=== PATIENT | female | born 1995 | race Caucasian/White ===

== ENCOUNTER 2021-12-30 08:25 | Outpatient (CLI) | payer OTHER ==
[~2021-12-30 08:25] MED LIST: FOLIC ACID1 MG; IRON325 MG; PRENATAL CAPLE1 EAC1; PROAIR HFA8.5 GM
== END 2021-12-30 09:31 | disposition home or self-care (01) ==
LOC: NST 08:25
PROVIDERS: ATTEND Specialist
DX: Z34.83 Encounter for supervision of other normal pregnancy, third trimester (principal)

== ENCOUNTER 2022-01-01 05:39 | Inpatient (IN) | payer OTHER ==
[~2022-01-01] VITALS: Ht 165.1 cm; Wt 79.4 kg
== END 2022-01-03 14:07 | disposition home or self-care (01) | DRG 807 ==
LOC: LDR 05:39 → SURG-SUITE 05:39
PROVIDERS: ADMIT Specialist; ATTEND Specialist
PROC: 10E0XZZ Delivery of Products of Conception, External Approach (ICD-10-PCS; principal; 2022-01-01)
PROC: 0W8NXZZ Division of Female Perineum, External Approach (ICD-10-PCS; 2022-01-01)
PROC: 4A1HXCZ Monitoring of Products of Conception, Cardiac Rate, External Approach (ICD-10-PCS; 2022-01-01)
DX: O60.14X0 Preterm labor third trimester with preterm delivery third trimester, not applicable or unspecified (principal); Z37.0 Single live birth; Z3A.36 36 weeks gestation of pregnancy; Z20.822 Contact with and (suspected) exposure to COVID-19

== ENCOUNTER 2022-09-19 20:33 | Emergency (ER) | payer OTHER ==
[~2022-09-19] VITALS: Ht 167.6 cm; Wt 77.1 kg
[2022-09-20] MEDS ORDERED: OSEL75CA PO (03:30)
== END 2022-09-20 04:23 ==
LOC: ER 20:33
DX: O99.512 Diseases of the respiratory system complicating pregnancy, second trimester (principal); Z3A.24 24 weeks gestation of pregnancy; J11.1 Influenza due to unidentified influenza virus with other respiratory manifestations; Z91.013 Allergy to seafood; Z20.822 Contact with and (suspected) exposure to COVID-19

== ENCOUNTER 2022-10-12 13:56 | Outpatient (CLI) | payer OTHER ==
[~2022-10-12 13:56] MED LIST changes: +OSEL75CA PO
== END 2022-10-13 06:30 | disposition home or self-care (01) ==
LOC: OBS/DEL 13:56
PROVIDERS: ATTEND Specialist
DX: O26.892 Other specified pregnancy related conditions, second trimester (principal); Z3A.27 27 weeks gestation of pregnancy; K52.9 Noninfective gastroenteritis and colitis, unspecified; Z91.013 Allergy to seafood

== ENCOUNTER 2022-12-31 04:25 | Inpatient (IN) | payer OTHER ==
[~2022-12-31] VITALS: Ht 167.6 cm; Wt 82.1 kg
[2022-12-31] MEDS ORDERED: SINGULAIR4 M1 PO (06:11)
== END 2023-01-02 15:12 | disposition home or self-care (01) | DRG 807 ==
LOC: LDR 04:25 → OB/GYN 17:00
PROVIDERS: ADMIT Specialist; ATTEND Specialist
PROC: 10E0XZZ Delivery of Products of Conception, External Approach (ICD-10-PCS; principal; 2022-12-31)
PROC: 0UQG7ZZ Repair Vagina, Via Natural or Artificial Opening (ICD-10-PCS; 2022-12-31)
PROC: 4A1HXCZ Monitoring of Products of Conception, Cardiac Rate, External Approach (ICD-10-PCS; 2022-12-31)
DX: O71.4 Obstetric high vaginal laceration alone (principal); Z37.0 Single live birth; Z3A.39 39 weeks gestation of pregnancy; Z20.822 Contact with and (suspected) exposure to COVID-19